=== PATIENT | female | born 1980 | race Caucasian/White ===

== ENCOUNTER → 2017-03-03 | Outpatient (CLI) | payer OTHER | LOC: LAB 10:12 | DX: Z01.419 Encounter for gynecological examination (general) (routine) without abnormal findings (principal); B00.89 Other herpesviral infection; F41.1 Generalized anxiety disorder; Z72.51 High risk heterosexual behavior ==

== ENCOUNTER → 2017-03-07 | Outpatient (CLI) | payer OTHER | LOC: LAB 09:32 | DX: Z53.9 Procedure and treatment not carried out, unspecified reason (principal) ==